=== PATIENT | female | born 1950 | race African-American/Black ===

== ENCOUNTER 2022-05-08 10:02 | Outpatient (CLI) | payer MEDICARE ==
[2022-05-08 11:44] LABS: #Basophils 0.1 10x3/uL (0.0-0.2); #Eosinphils 0.1 10x3/uL (0.0-0.5); #Monocytes 0.6 10x3/uL (0.0-1.1); #Neutrophils 3.5 10x3/uL (1.5-8.4); %Basophils 0.7 % (0.0-2.0); %Eosinophils 1.3 % (0.0-6.0); %Lymphocytes 38.9 % (18.0-47.0); %Monocytes 9.2 % (0.0-10.0); %Neutrophils 49.5 % (40.0-75.0); Hemoglobin 13.1 g/dL (12.0-15.5); Mean Corpuscular Hemoglobin 26.7 pg (27.0-33.0); Mean Corpuscular Volume 83.5 fl (81.6-98.3); Mean Platelet Volume 10.6 fl (7.4-10.4); Platelet Count 338 10x3/uL (150-450); RBC Distribution Width 14.6 % (11.5-14.5)
[2022-05-08 12:05] LABS: ALT (SGPT) 16 U/L (8-55); AST (SGOT) 21 U/L (5-34); Albumin 4.6 g/dL (3.4-4.8); Alkaline Phosphatase 85 U/L (40-110); Anion Gap 16 mmol/L (10-20); BUN (Urea Nitrogen) 19 mg/dL (9.8-20.1); Bilirubin, Total 0.3 mg/dL (0.2-1.2); Calc. Creatinine Clearance 0 mL/min (70-130); Calcium 10.3 mg/dL (7.8-10.44); Carbon Dioxide 22 mmol/L (23-31); Chloride 106 mmol/L (98-107); Estimated GFR 55; Globulin 3.4 g/dL (2.4-3.5); Glucose 89 mg/dL (83-110); Potassium 4.6 mmol/L (3.5-5.1); Sodium 139 mmol/L (136-145)
== END 2022-05-08 10:03 | disposition home or self-care (01) ==
LOC: CSHLAB 10:02
PROVIDERS: ATTEND Surgery
DX: Z01.818 Encounter for other preprocedural examination (principal)
CPT/HCPCS: 80053; 85025; 93005; 93010

== ENCOUNTER 2022-05-10 06:49 | Day surgery (SDC) | payer MEDICARE ==
[2022-05-09 10:06] VITALS: BMI 33.0
[2022-05-10] MEDS ORDERED: EPINEPHrine 1 MG/ML AMP ONE (12:45)
[2022-05-10] MEDS ORDERED: Isosulfan Blue 50 MG/5 ML VIAL ONE (12:46)
[2022-05-10] MEDS ORDERED: Bupivacaine PF 0.5% 30 ML VIAL ONE (12:46)
[2022-05-10] MEDS ORDERED: PROPOFOL 20 ML ONE (14:04)
[2022-05-10] MEDS ORDERED: Clindamycin/D5W 600 mg/50 ml Premix Bag ONE (14:04)
[2022-05-10] MEDS ORDERED: Fentanyl 100 MCG/2 ML VIAL ONE (14:04)
[2022-05-10] MEDS ORDERED: Lidocaine 1% PF 5 ML VIAL ONE (14:04)
[2022-05-10] MEDS ORDERED: Dexamethasone 20 MG/5 ML VIAL ONE ×2 (14:04→14:26)
[2022-05-10] MEDS ORDERED: Ondansetron PF 4 MG/2 ML Vial ONE (14:04)
[2022-05-10] MEDS ORDERED: Meperidine HCl/PF 25 MG/ML VIAL ONE (14:58)
[2022-05-10] MEDS ORDERED: HYDROcodone/Acetaminophen 5/325 mg Tablet PO PRN (15:28)
[2022-05-10] MEDS ORDERED: Acetaminophen 325 MG TAB PO PRN (15:28)
== END 2022-05-10 16:20 | disposition home or self-care (01) ==
LOC: CSHSDC 06:49
PROVIDERS: ATTEND Surgery
PROC: 0HBU0ZX Excision of Left Breast, Open Approach, Diagnostic (ICD-10-PCS; principal; 2022-05-10)
DX: D05.12 Intraductal carcinoma in situ of left breast (principal); N64.1 Fat necrosis of breast; D24.2 Benign neoplasm of left breast; N60.82 Other benign mammary dysplasias of left breast; I10 Essential (primary) hypertension; Z79.82 Long term (current) use of aspirin; Z79.899 Other long term (current) drug therapy; Z88.0 Allergy status to penicillin
CPT/HCPCS: 19301; Q9968; 88307; J0171; J1100; J2175; J2405; J2704; J3010; J3490; S0020

== ENCOUNTER → 2022-05-10 | Day surgery (SDC) | payer MEDICARE | LOC: CSHMAMMO 07:49 | PROVIDERS: ATTEND Surgery | DX: D05.12 Intraductal carcinoma in situ of left breast (principal); I10 Essential (primary) hypertension; Z79.899 Other long term (current) drug therapy | CPT/HCPCS: 19281; 76098 ==

== ENCOUNTER 2022-05-24 06:00 | Day surgery (SDC) | payer MEDICARE ==
[2022-05-23 09:24] VITALS: BMI 34.3
[2022-05-24] MEDS ORDERED: Bupivacaine PF 0.5% 30 ML VIAL ONE (07:42)
[2022-05-24] MEDS ORDERED: Clindamycin/D5W 600 mg/50 ml Premix Bag ONE ×2 (08:00→08:51)
[2022-05-24] MEDS ORDERED: PROPOFOL 20 ML ONE (08:50)
[2022-05-24] MEDS ORDERED: Lidocaine 1% PF 5 ML VIAL ONE (08:51)
[2022-05-24] MEDS ORDERED: Dexamethasone 20 MG/5 ML VIAL ONE (08:51)
[2022-05-24] MEDS ORDERED: Midazolam HCl 2 mg/2 ml Vial ONE (08:51)
[2022-05-24] MEDS ORDERED: Glycopyrrolate 0.2 MG/ML 5 ML SYRINGE ONE (08:51)
[2022-05-24] MEDS ORDERED: Fentanyl 100 MCG/2 ML VIAL ONE (08:51)
[2022-05-24] MEDS ORDERED: Ondansetron PF 4 MG/2 ML Vial ONE (08:51)
[2022-05-24] MEDS ORDERED: EPINEPHrine 1 MG/ML AMP ONE (09:14)
[2022-05-24] MEDS ORDERED: PHENYLEPHRINE-NS 100 MCG/ML 10 ML SYRINGE ONE (09:20)
[2022-05-24] MEDS ORDERED: Acetaminophen 325 MG TAB PO PRN (10:17)
[2022-05-24] MEDS ORDERED: HYDROcodone/Acetaminophen 5/325 mg Tablet PO PRN ×2 (10:17)
== END 2022-05-24 11:00 | disposition home or self-care (01) ==
LOC: CSHSDC 06:00
PROVIDERS: ATTEND Surgery
PROC: 0HBU0ZZ Excision of Left Breast, Open Approach (ICD-10-PCS; principal; 2022-05-24)
DX: D05.12 Intraductal carcinoma in situ of left breast (principal); N60.82 Other benign mammary dysplasias of left breast; D24.2 Benign neoplasm of left breast; N60.22 Fibroadenosis of left breast; I10 Essential (primary) hypertension; K21.9 Gastro-esophageal reflux disease without esophagitis; E78.5 Hyperlipidemia, unspecified; E66.9 Obesity, unspecified; Z68.34 Body mass index [BMI] 34.0-34.9, adult; Z79.82 Long term (current) use of aspirin; Z79.899 Other long term (current) drug therapy; Z88.0 Allergy status to penicillin; Z88.8 Allergy status to other drugs, medicaments and biological substances
CPT/HCPCS: 88307; 88341; 88342; J0171; J1100; J2250; J2405; J2704; J3010; J3490; S0020

== ENCOUNTER 2023-08-23 12:49 | Outpatient (CLI) | payer MEDICARE | END 2023-08-23 12:50 | disposition home or self-care (01) | LOC: CSHMAMMO 12:49 | PROVIDERS: ATTEND Family Medicine | DX: C50.912 Malignant neoplasm of unspecified site of left female breast (principal) | CPT/HCPCS: 77066; G0279 ==